=== PATIENT | female | born 1950 | race Caucasian/White ===

== ENCOUNTER 2020-04-06 19:52 | Emergency (ER) | payer MEDICARE, SELFPAY ==
--- NOTE | ~2020-04-06 | CT_ITS ---
EXAMINATION: CT abdomen pelvis w con DATE: 04/06/2020 22:07 INDICATION: Low abdominal pain. TECHNIQUE: Computed tomography (CT) of the abdomen and pelvis was performed with 100 mL Omnipaque 350 intravenous contrast. Automated exposure control and iterative reconstruction technique were employe d. The dose-length product was 383.54 mGy-cm. COMPARISON: CT abdomen and pelvis 10/10/2018 FINDINGS: The visualized portions of the lung bases demonstrate mild atelectasis. No pleural effusion . The heart size is normal. No pericardial effusion. Calcifications in the liver and spleen are consi stent with old granulomatous disease. The gallbladder, pancreas, and adrenal glands are normal. There is cortical thinning of the kidneys. There are cysts in the kidneys measuring up to 10 mm on the lef t. There are parenchymal calcifications in right kidney. There are 3 stones in left kidney measuring up to 5 mm. There are no dilated loops of bowel. The appendix is normal. There are no pathologically enlarged lymph nodes. There is no free intraperitoneal fluid. There are bilateral hip arthroplasties. There is severe lower lumbar spondylosis. IMPRESSION: 1. Nonobstructing left kidney stones. Reviewed, dictated and finalized at location A.
[2020-04-06 19:53] VITALS: BP 178/88; PULSE 99; RESP 14; TEMP 37.3; O2SAT 100
--- NOTE | 2020-04-06 20:24 | ED.ABDPAIN ---
HPI - Abdominal Pain General Chief Complaint: Abdominal Pain Stated Complaint: kidney stone Time Seen by Provider: 04/06/20 20:10 History of Present Illness HPI narrative: Patient is a 69-year-old female who presents ER with nonspecific abdominal pain. Patient reports over the last 3-1/2 to 4 weeks she has been having this thick-walled loss of appetite and generalized malaise. Reports over the last week she has developed and midline pains in her abdomen on the right side and the left side radiating to her back. She has history of kidney stones. She no longer has a gallbladder. She reports that she has not lost any weight and she was surviving mainly on fluids and soft foods like peanut butter. Reports 4-5 episodes of diarrhea today that were small caliber. Reports urinary frequency without dysuria or hematuria. Saw her PCP 2 days ago and did not mention any of these complaints. She was seen for sinusitis and did not start the antibiotic that was ordered. Related Data Home Medications Medication Instructions Recorded Confirmed alprazolam 0.25 mg tablet 0.25 mg PO DAILY 03/14/20 04/04/20 Allergies Allergy/AdvReac Type Severity Reaction Status Date / Time levetiracetam Allergy Severe ANAPHYLACTIC Verified 04/04/20 14:28 SHOCK mushroom Allergy Severe convulsions Verified 04/04/20 14:28 prochlorperazine Allergy Severe Anaphylactic Verified 04/04/20 14:28 Shock promethazine Allergy Severe Anaphylactic Verified 04/04/20 14:28 Shock bee venom protein (honey bee) AdvReac Severe anaphylaxis Verified 04/04/20 14:28 Review of Systems Review of Systems: All systems reviewed & are unremarkable except as noted in HPI and below Constitutional: Constitutional: Reports fatigue and Denies fever(s) ENT: Denies nasal congestion and Denies sore throat Cardiovascular: Cardiovascular: Denies chest pain, Denies rapid heart rate and Denies radiating jaw, neck or arm pain Respiratory: Respiratory: Denies cough and Denies dyspnea Gastrointestinal: Gastrointestinal: Reports abdominal pain, Reports nausea and Denies vomiting Genitourinary: Genitourinary: Denies hematuria, Reports nocturia and Denies dysuria [facility] Past Medical History Medical History (Updated 04/06/20 @ 22:54 by Jeffy Leal MD) Hypothyroidism (acquired) Kidney stone Mixed hyperlipidemia Recurrent sinusitis Seizure disorder Situational anxiety Surgical History Surgical History (Updated 04/06/20 @ 20:30 by Jeffy Leal MD) History of cholecystectomy Family History Family History (Updated 05/20/14 @ 07:13 by DOCTOR UNKNOWN) Other Cerebrovascular accident Diabetes mellitus Family history of arthritis Family history of coronary artery disease Family history of heart disease in male family member before age 55 Family history of malignant neoplasm Social History Social History Smoking status: Never smoker Alcohol intake: current Gender identity (if verbalized by the patient): Female Exam Narrative: Exam Narrative: GENERAL: Well-appearing, well-nourished, and in no acute distress. HEAD: Normocephalic, atraumatic. ENT: Mucous membranes moist. CHEST: Clear to auscultation. No respiratory distress. HEART: Regular rate and rhythm. Normal peripheral pulses. ABDOMEN: Soft, nontender, nondistended. EXTREMITIES: Normal range of motion. No edema. SKIN: Warm, dry, no rash. NEURO: Alert and oriented x3. Course Course Emergency Course: Unremarkable evaluation. Patient needs to follow-up with her primary care doctor. We will give some antinausea medication for home. Vital Signs Vital signs: Vital Signs Temperature 99.2 F 04/06/20 19:53 Pulse Rate 99 04/06/20 19:53 Respiratory Rate 14 04/06/20 19:53 Blood Pressure 178/88 H 04/06/20 19:53 Pulse Oximetry 100 04/06/20 19:53 Temperature 99.2 F 04/06/20 19:53 Pulse Rate 78 04/06/20 20:37 Respiratory Rate 20 04/06/20 20:37 Blood Press
[2020-04-06 20:37] VITALS: BP 168/91; PULSE 78; RESP 20; O2SAT 100
[2020-04-06] MEDS: MORPHINE SULFATE 2 MG/ML INJ IV PUSH (20:48)
[2020-04-06 20:51] LABS: Basophils Absolute Auto 0.1 K/mm3 (0.0-0.1); Eosinophils Percent Auto 0.6 % (0-4.4); Hematocrit 40.1 % (37.0-47.0); Hemoglobin 13.7 g/dL (12.0-15.0); Immature Granulocyte Absolute 0.02 K/mm3 (0.00-0.031); Immature Granulocyte Percent A 0.3 % (0-0.5); Lymphocytes Absolute Auto 1.51 K/mm3 (0.9-3.2); Lymphocytes Percent Auto 24.4 % (18.3-44.2); Mean Corpuscular HGB Conc 34.2 g/dl (32-36); Mean Corpuscular Hemoglobin 31.7 pg (26-34); Mean Corpuscular Volume 92.8 fl (80-100); Monocytes Absolute Auto 0.6 K/mm3 (0.1-0.6); Monocytes Percent Auto 9.7 % (2.6-8.5); Platelet Count Result 306 k/mm3 (150-375); Red Blood Count 4.32 M/mm3 (4.2-5.4); White Blood Count 6.2 K/mm3 (4.5-10.0)
[2020-04-06 21:03] LABS: Blood Urea Nitrogen 12 mg/dL (7-17); Carbon Dioxide 25 mmol/L (22-30); Chloride 104 mmol/L (98-107); Estimated CRCL calculation 55 ml/min; Estimated Glomerular Filt Rate > 60; Glucose 84 mg/dL (65-105); Potassium 3.9 mmol/L (3.4-5.0); Sodium 137 mmol/L (137-145)
[2020-04-06 22:12] LABS: Add Urine Microscopic? YES; Appearance Urine Clear (Clear); Bilirubin Urine Negative (Negative); Blood Urine Negative (Negative); Color Urine Yellow (Yellow); Glucose Urine UA Negative (Negative); Ketones Urine 1+ mg/dL (Negative); Leukocyte Esterase Ur Negative LEU/UL (Negative); Mucus Urine Rare /lpf; Nitrate Urine Negative (Negative); Protein Urine Negative (Negative); RBC Urine 0-2 /hpf (0-2); Specific Grav Ur 1.015 (1.001-1.035); Squamous Epithelial Cell Urine Rare /hpf (Few); Urobilinogen Urine Negative mg/dL (<2.0); WBC Urine 0-3 /hpf
[2020-04-06 22:40] VITALS: PULSE 76; RESP 20; O2SAT 100
[2020-04-06 23:10] VITALS: BP 191/90; PULSE 78; RESP 20; O2SAT 100
== END 2020-04-06 23:12 | disposition home or self-care (01) ==
PROVIDERS: Emergency Medicine; Emergency Provider Emergency Medicine; PCP Internal Medicine
DX: R10.30 Lower abdominal pain, unspecified (principal); R53.81 Other malaise; E03.9 Hypothyroidism, unspecified; Z87.442 Personal history of urinary calculi; E78.2 Mixed hyperlipidemia; N20.0 Calculus of kidney
CPT/HCPCS: 36415; 74177; 80048; 81001; 85025; 96374; 99284; J2270; Q9967

== ENCOUNTER 2021-06-30 10:41 | Outpatient (CLI) | payer MEDICARE, SELFPAY ==
--- NOTE | ~2021-06-30 | XR_ITS ---
XR abdomen/kub 1V DATE: 06/30/2021 11:00 INDICATION: Bilateral nephrolithiasis TECHNIQUE: AP projection, 2 views COMPARISON: 04/06/2020 CT abdomen pelvis with IV contrast material FINDINGS: At least 2 calcifications are noted overlying each kidney, consistent with bilateral nephro lithiasis. No calcification is noted overlying the ureters. There is a moderately prominent amount of fecal material in the colon. No bowel obstruction. The psoa s shadows are intact. No visceromegaly is evident. Status post bilateral total hip arthroplasty. IMPRESSION: Bilateral nephrolithiasis, stable since 04/06/2020 Reviewed, dictated and finalized at Location A. Reviewed, dictated and finalized at location A.
== END 2021-06-30 10:42 | disposition home or self-care (01) ==
LOC: ANHIMG 10:45
PROVIDERS: PCP Nurse Practitioner Family; Visit Provider Nurse Practitioner Adult Health
DX: N20.0 Calculus of kidney (principal)
CPT/HCPCS: 74018

== ENCOUNTER 2021-07-03 12:00 | Outpatient (CLI) | payer MEDICARE, SELFPAY ==
--- NOTE | ~2021-07-03 | CT_ITS ---
EXAMINATION: CT abdomen pelvis wo con EXAM DATE: 07/03/2021 12:53 INDICATION: Acute right-sided abdominal pain, flank pain. TECHNIQUE: Spiral CT of the abdomen and pelvis was performed without contrast. Axial, coronal and sag ittal images were reviewed. The dose-length product (DLP) for this examination was 432.58 mGy-cm. T he exposure was tailored according to patient size (auto mA exposure control), and iterative reconstr uction (ASIR) was used as additional dose reduction technique. Comparison is made to prior examinatio n from 04/06/2020. FINDINGS: There is left inferior calyceal 1 cm stone and 2 smaller right inferior calyceal stones. T here is right renal cortical scarring with calcification. There is no hydronephrosis to suggest obstr uctive nephropathy. Please note the distal aspects of both ureters are not evaluated due to dense art ifact from patient's bilateral hip replacement hardware. Bladder and uterus is still present also po nicci visualized. The liver, spleen, adrenal glands and pancreas are unremarkable. Gallbladder is contracted. No calci fied cholelithiasis. There is no retroperitoneal or pelvic lymphadenopathy. There is mild scattere d arteriosclerotic disease. The appendix is not positively visualized. There is no pericecal inflammatory change to suggest appe ndicitis. The stomach and small bowel are unremarkable. There is expected amount of colonic stool. No free intraperitoneal gas. The heart is normal in size. There are no pericardial or pleural e ffusions. The lung bases are unremarkable. There are no osteoblastic or osteolytic lesions identifi ed. IMPRESSION: Bilateral nephrolithiasis. No hydroureteronephrosis to suggest ureteral stone, but distal aspects of ureters, bladder poorly well visualized. No definite acute findings. Reviewed, dictated and finalized at location A. IMPRESSION: Bilateral nephrolithiasis. No hydroureteronephrosis to suggest uret eral stone, but distal aspects of ureters, bladder poorly well visualized. No d efinite acute findings.
== END 2021-07-03 12:01 | disposition home or self-care (01) ==
LOC: ANHIMG 12:12
PROVIDERS: PCP Nurse Practitioner Family; Visit Provider Nurse Practitioner Adult Health
DX: R10.9 Unspecified abdominal pain (principal); N20.0 Calculus of kidney
CPT/HCPCS: 74176

== ENCOUNTER 2022-07-18 12:58 | Outpatient (CLI) | payer MEDICARE, SELFPAY ==
--- NOTE | ~2022-07-18 | XR_ITS ---
XR abdomen/kub 1V 07/18/2022 13:24 Indication: Renal stones Procedure: KUB Comparison: 10/17/2018 Findings: There are bilateral renal stones. There are multiple calcified granulomas of the spleen. Cristobal wel gas pattern is nonobstructive with moderate colonic fecal loading. Lung bases are unremarkable. T here are bilateral hip arthroplasties. Impression: 1: Bilateral nephrolithiasis. Reviewed, dictated and finalized at location B. Impression: 1: Bilateral nephrolithiasis.
== END 2022-07-18 12:59 | disposition home or self-care (01) ==
PROVIDERS: Visit Provider Nurse Practitioner Adult Health
DX: N20.0 Calculus of kidney (principal)
CPT/HCPCS: 74018

== ENCOUNTER 2022-07-25 13:23 | Outpatient (CLI) | payer MEDICARE, SELFPAY ==
[2022-07-25 14:24] LABS: INR 1.1; Partial Thromboplastin Time 26.8 SECONDS (22.3-36.8); Prothrombin Time 13.3 Seconds (11.1-14.7)
== END 2022-07-25 13:24 | disposition home or self-care (01) ==
LOC: ANHSURGERY 13:28
PROVIDERS: Visit Provider Urology
DX: N20.0 Calculus of kidney (principal); Z01.818 Encounter for other preprocedural examination
CPT/HCPCS: 36415; 85610; 85730

== ENCOUNTER 2022-07-27 01:14 | Day surgery (SDC) | payer MEDICARE, SELFPAY ==
--- NOTE | 2022-07-24 15:16 | PC.NURSE ---
Report to the Outpatient Waiting Room, entrance under the green pavilion located off [facility], at time _6:30AM on date __07/27/22 . Planned Procedure Time: __8:30AM . Time changes happen often and if your time is changed the preop area will call you the afternoon before. - You and your visitor will be asked to self-screen and do not enter if you have any COVID symptoms. - We encourage only one visitor and NO visitors under age 16 are allowed at this time. Your visitor will receive communication by the phone number that is given day of service. - The patient visitor is requested to social distance or may leave the building when not with patient due to restrictions. - A mask is required within the hospital. Patients may have clear liquids (water, carbonated beverages, clear teas, apple juice) until 3 hours prior to surgery with a maximum of 20 ounces. - No food from midnight until time of surgery Take the following medications with a SIP of water the morning of surgery: __LEVOTHYROXINE, OXCARBAZEPINE, ZOFRAN & RIZATRIPTAN NEEDED Medications to discontinue per physician ___HOLD ALL VITAMINS/SUPPLEMENTS 3 DAYS PRE-OP Date to take last dose____07/24/22 Please no make-up, nail mongolian, hairspray, perfume, deodorant, or body powder the day of surgery. No jewelry (including any body piercings) or valuables the day of surgery, leave them at home. Please take a shower or bath the night before, or the morning of, surgery with an antibacterial soap. Wear comfortable, loose fitting clothing. Children are encouraged to wear pajamas. - Jewelry must be removed prior to entering the operating room. Rings and piercings that are not removed may be cut off. - The hospital will not accept responsibility for valuables. - Please leave all valuables, including medications, at home the day of surgery. If you are going home after surgery, a licensed compactor driver must drive you home. - NO public transportation without another adult. - We recommend that an adult stay with you for 24 hours following discharge. - We also recommend that you do not drive, make important decision, drink alcoholic beverages, or take any drugs that were not prescribed by your health care provider for at least 24 hours after your discharge time. Follow any additional instructions given to you from your surgeon. If you or anyone in your household have experienced Covid symptoms in the past week, please notify your surgeon or the nurse liaison at the phone number below for possible testing. Telephone instructions given to ___PATIENT and asked if any additional questions and then verbalized understanding. Patient advised to call surgeon office or pre surgery nurse liaison [phone] if any additional questions.
[2022-07-27] VITALS (9 sets, daily range): BP systolic 177–210; BP diastolic 81–98; PULSE 69–93; RESP 14–18; TEMP 36.2–36.7; O2SAT 98–100
--- NOTE | ~2022-07-27 | XR_ITS ---
EXAMINATION: XR abdomen/kub 1V DATE: 07/27/2022 06:56 INDICATION: Kidney stone. TECHNIQUE: A supine view of the abdomen on 2 radiographs was obtained. COMPARISON: CT abdomen and pelvis 07/03/2021, abdomen radiographs 07/18/2022 FINDINGS: There are no dilated loops of bowel. There is a large volume of stool in the colon. There a re bilateral hip arthroplasties. There is a 4 mm stone in right kidney lower pole. There are 2 calcif ications in right kidney upper pole measuring up to 7 mm that may be parenchymal. There is a 7 mm sto ne in left kidney. A 4 mm calcification left kidney may be parenchymal. IMPRESSION: 1. Bilateral kidney stones. Reviewed, dictated and finalized at location A. IMPRESSION: 1. Bilateral kidney stones.
[2022-07-27] MEDS: LACTATED RINGERS 1,000 ML 30 ML IV CONT (07:15)
--- NOTE | 2022-07-27 07:58 | WPDANESEPPF ---
Anes - Initial Pre Proc Eval Procedure: Operation Date: 07/27/22 08:30 Proposed Procedures p Left Renal Extracorporeal Shock Wave Lithotripsy - Segun Aguilera MD Date/Time: 07/27/22 07:58 Surgeon: Segun Aguilera MD Pre Op Diagnosis: left renal stone Patient Data Age: 71 Gender: F Height: 1.7 m Weight: 60.1 kg Allergies Allergy/AdvReac Type Severity Reaction Status Date / Time bee venom protein (honey bee) Allergy Severe anaphylaxis Verified 07/27/22 07:17 levetiracetam Allergy Severe ANAPHYLACTIC Verified 07/27/22 07:17 SHOCK/ORAL SWELLING mushroom Allergy Severe ORAL Verified 07/27/22 07:17 SWELLING prochlorperazine Allergy Severe Anaphylactic Verified 07/27/22 07:17 Shock/ORAL SWELLING promethazine Allergy Severe Anaphylactic Verified 07/27/22 07:17 Shock/ORAL SWELLING Home Medications Medication Instructions Recorded Confirmed Type ergocalciferol (vitamin D2) 1,250 50,000 unit PO 2XW #1 cap 08/04/19 07/24/22 Rx mcg (50,000 unit) capsule ondansetron HCl 4 mg tablet 4 mg PO Q8H PRN nausea and 04/06/20 07/24/22 Rx (Zofran) vomiting #10 tabs pantoprazole 40 mg tablet,delayed 40 mg PO QAM #90 tabs 08/02/20 07/24/22 Rx release levothyroxine 75 mcg capsule 75 mcg PO DAILY #30 caps 10/20/20 07/24/22 Rx oxcarbazepine 600 mg tablet 600 mg PO BID #60 tabs 01/12/21 07/24/22 Rx famotidine 20 mg tablet 20 mg PO BID 07/24/22 07/24/22 History lactobacillus combination no.8 3 3 cell PO DAILY 07/24/22 07/24/22 History billion cell capsule xtuppfzwsqtc-Zq-rtdi-minerals 1 tablet PO DAILY 07/24/22 07/24/22 History rizatriptan 10 mg tablet 10 mg PO BID PRN Migraine Headache 07/24/22 07/24/22 History sucralfate 1 gram tablet 1 g PO QID 07/24/22 07/24/22 History Patient hx anesthesia problems: none Family hx anesthesia problems: none Results Review: All pre-operative results and documents have been reviewed as part of the pre-operative evaluation. [facility] Past Medical History Medical History Hypothyroidism (acquired) Kidney stone Mixed hyperlipidemia Recurrent sinusitis Seizure disorder Situational anxiety Situational mixed anxiety and depressive disorder Urolithiasis Surgical History Surgical History History of cholecystectomy Family History Family History Other Cerebrovascular accident Diabetes mellitus Family history of arthritis Family history of coronary artery disease Family history of heart disease in male family member before age 55 Family history of malignant neoplasm Social History Social History Smoking status: Never smoker Alcohol intake: current Substance use: never Living arrangements: alone Gender identity (if verbalized by the patient): Female Spiritual care concerns: No Anes - Eval Final PreProcedure Day of Procedure 07/27/22 07:58 Patient weight: normal Heart: regular rate and rhythm Lungs: clear to auscultation Airway: Mallampati scale class II Neurological: alert and oriented Last oral intake: >/= 8 hours ASA classification: III Emergent: no Anesthetic plan: proceed Anesthesia type and monitoring: general LMA and standard monitoring Results Review: All pre-operative results and documents have been reviewed as part of the pre-operative evaluation. Informed Consent: The patient's anesthetic plan and its attendant risks and benefits were discussed with the patient/family/POA. Questions were solicited and answers provided to the satisfaction of the patient/family/POA.
--- NOTE | 2022-07-27 08:24 | WPDHPUPDATE1 ---
History and Physical Update Update Date/Time: 07/27/22 08:24 History and Physical has been reviewed, including an updated exam of the patient. There are NO changes in the patient's condition. Risks, benefits, and alternatives have been discussed and questions answered. Patient agrees to proceed with procedure.
--- NOTE | 2022-07-27 08:45 | W.PM.PROC2 ---
Procedure Note - Detailed Date of Procedure 07/27/22 Pre-op Diagnosis Left renal stones Post-op Diagnosis Same Procedure Performed Left ESWL Surgeon Segun Aguilera MD Anesthesia General Description of Procedure The patient was brought to the operative suite where he was placed in the supine position on the Dornier lithotripsy table. The focal point of the lithotripter was placed at a two, nearly contiguous calculi in the left lower pole. A total of 2500 shocks were delivered at a power setting of 4 to these stones. There appeared to be good fragmentation of the stones. The patient tolerated the procedure well and was taken to the recovery room in good condition. Drains No Packing No Pathology None sent Complications No immediate complications
[2022-07-27] MEDS: LABETALOL HCL INJ 100 MG/20 ML VIAL IV PUSH (09:35)
--- NOTE | 2022-07-27 10:34 | SUR.PHASEII ---
1034 - voided. family member here.
== END 2022-07-27 11:05 | disposition home or self-care (01) ==
PROVIDERS: Visit Provider Urology
PROC: (CPT 50590; principal; 2022-07-27 08:30)
DX: N20.0 Calculus of kidney (principal); E78.2 Mixed hyperlipidemia; G40.909 Epilepsy, unspecified, not intractable, without status epilepticus; E03.9 Hypothyroidism, unspecified; F41.8 Other specified anxiety disorders
CPT/HCPCS: 50590; 36415; 74018; 85610; 85730; J0690; J1100; J2250; J2405; J2704; J3010; J7120

== ENCOUNTER 2023-05-23 10:32 | Emergency (ER) | payer MEDICARE, SELFPAY ==
[2023-05-23] VITALS (10 sets, daily range): BP systolic 133–147; BP diastolic 54–90; PULSE 65–86; RESP 10–19; TEMP 36.3–36.8; O2SAT 98–100
--- NOTE | ~2023-05-23 | CT_ITS ---
EXAMINATION: CT abdomen pelvis w con DATE: 05/23/2023 14:03 INDICATION: Right flank pain. Nausea and vomiting. TECHNIQUE: Computed tomography (CT) of the abdomen and pelvis was performed with 100 mL Omnipaque 350 intravenous contrast. Automated exposure control and iterative reconstruction technique were employe d. The dose-length product was 393.00 mGy-cm. COMPARISON: CT abdomen and pelvis 07/03/2021 FINDINGS: The visualized portions of the lung bases demonstrate mild atelectasis. No pleural effusion . The heart size is normal. No pericardial effusion. Calcifications in the liver and spleen are consi stent with old granulomatous disease. There is a 7 mm cyst in the liver. The gallbladder, pancreas, a nd adrenal glands are normal. There is cortical thinning of the kidneys. There are cysts in the kidne ys measuring up to 13 mm on the left. There is a parenchymal calcification in right kidney. The dista l ureters are obscured by artifact from the bilateral hip arthroplasties. There is a 2 mm stone in th e bladder. There are no dilated loops of bowel. The appendix is not visualized. There are no patholog ically enlarged lymph nodes. There is no free intraperitoneal fluid. Aortic atherosclerosis is noted. There is severe lower lumbar spondylosis. IMPRESSION: 1. 2 mm stone in the bladder. Reviewed, dictated and finalized at location E.
[2023-05-23 11:29] LABS: Basophils Absolute Auto 0.1 K/mm3 (0.0-0.1); Basophils Percent Auto 1.6 % (0.2-1.2); Eosinophils Absolute Auto 0.3 K/mm3 (0-0.3); Eosinophils Percent Auto 4.5 % (0-4.4); Hematocrit 42.8 % (37.0-47.0); Hemoglobin 12.9 g/dL (12.0-15.0); Immature Granulocyte Absolute 0.02 K/mm3 (0.00-0.031); Immature Granulocyte Percent A 0.3 % (0-0.5); Lymphocytes Absolute Auto 2.66 K/mm3 (0.9-3.2); Lymphocytes Percent Auto 39.6 % (18.3-44.2); Mean Corpuscular HGB Conc 30.1 g/dl (32-36); Mean Corpuscular Hemoglobin 28.9 pg (26-34); Mean Corpuscular Volume 95.7 fl (80-100); Mean Platelet Volume 9.2 fl (7.4-10.4); Monocytes Absolute Auto 0.5 K/mm3 (0.1-0.6); Monocytes Percent Auto 7.6 % (2.6-8.5); Neutrophils Absolute Auto 3.1 K/mm3 (1.3-6.7); Neutrophils Percent Auto 46.4 % (45.5-73.1); Platelet Count Result 303 k/mm3 (150-375); Red Blood Count 4.47 M/mm3 (4.2-5.4); White Blood Count 6.7 K/mm3 (4.5-10.0)
[2023-05-23 11:45] LABS: Alanine Aminotransferase 32 U/L (6-35); Albumin Level 4.6 g/dL (3.5-5.1); Alkaline Phosphatase 101 U/L (38-126); Anion Gap 13 mmol/L (8-16); Aspartate Amino Transferase 40 U/L (14-36); Bilirubin,Total 0.4 mg/dL (0.2-1.3); Blood Urea Nitrogen 27 mg/dL (7-17); Calcium 10.1 mg/dL (8.4-10.2); Carbon Dioxide 18 mmol/L (22-30); Chloride 108 mmol/L (98-107); Estimated CRCL calculation 43 ml/min; Estimated Glomerular Filt Rate 54; Glucose 100 mg/dL (65-110); Potassium 4.8 mmol/L (3.4-5.0); Sodium 139 mmol/L (137-145)
[2023-05-23 13:17] LABS: Appearance Urine Clear (Clear); Bacteria Urine None Seen /hpf; Bilirubin Urine Negative (Negative); Blood Urine Negative (Negative); Color Urine Dark Yellow (Yellow); Glucose Urine UA Negative (Negative); Ketones Urine Negative (Negative); Leukocyte Esterase Ur 2+ LEU/UL (Negative); Need Manual Microscopic Reviewed; Nitrate Urine Negative (Negative); Non Pathogenic Casts 0-2; Protein Urine Negative (Negative); RBC Urine 0-2 /hpf (0-2); Specific Grav Ur 1.015 (1.001-1.035); Squamous Epithelial Cell Urine None seen /hpf (Few); Urobilinogen Urine 0.2 mg/dL (<2.0); WBC Urine 0-5 /hpf; pH Urine 7.5 (5.0-9.0)
[2023-05-23 13:18] LABS: Add Urine Microscopic? YES
--- NOTE | 2023-05-23 13:27 | ED.GENADULT ---
HPI - General Adult General Chief complaint: Abdominal Pain Stated complaint: flank pain Time Seen by Provider: 05/23/23 12:46 Source: patient Mode of arrival: ambulatory Limitations: no limitations History of Present Illness HPI narrative: This is a 72-year-old female who presents to the ED with chief complaint of right flank pain and nausea/vomiting that began last night. She states pain is constant today. She reports being on multiple rounds of antibiotics for potential UTI over the past month. She has been seen recently by your and is finishing up her prescription for Macrobid and ciprofloxacin right now. She states that she is having subjective fever and chills as well. Patient reports that she has had multiple renal/ureteral stones in the past and they have been monitoring the renal stones. Denies chest pain, shortness of breath, cough, problems with bowel movements. Related Data Home Medications Medication Instructions Recorded Confirmed atorvastatin 40 mg tablet 40 mg PO DAILY 05/01/23 sumatriptan succinate 25 mg tablet 25 mg PO BID PRN 05/01/23 topiramate 50 mg capsule,extended 50 mg PO BID 05/01/23 release 24 hr acetaminophen 500 mg capsule 650 mg PO Q6H PRN 05/02/23 lwrstxy-wqybcosuvwnkc-vtfvvbjr 250 1 tablet PO Q4-6H PRN 05/02/23 mg-250 mg-65 mg tablet (Excedrin Migraine) cephalexin 500 mg capsule 500 mg PO Q12H 05/02/23 cholecalciferol (vitamin D3) 125 125 mcg PO DAILY 05/02/23 mcg (5,000 unit) capsule gabapentin 300 mg capsule 300 mg PO BID PRN 05/02/23 oxcarbazepine 600 mg tablet 600 mg PO BID 05/02/23 Allergies Allergy/AdvReac Type Severity Reaction Status Date / Time bee venom protein (honey bee) Allergy Severe anaphylaxis Verified 05/23/23 12:44 levetiracetam Allergy Severe ANAPHYLACTIC Verified 05/23/23 12:44 SHOCK/ORAL SWELLING mushroom Allergy Severe ORAL Verified 05/23/23 12:44 SWELLING prochlorperazine Allergy Severe Anaphylactic Verified 05/23/23 12:44 Shock/ORAL SWELLING promethazine Allergy Severe Anaphylactic Verified 05/23/23 12:44 Shock/ORAL SWELLING Review of Systems Review of Systems: All systems as dictated in HPI PMFSH Past Medical History Medical History Chronic pain syndrome Deficiency of other specified B group vitamins Endometriosis Full dentures Gastro-esophageal reflux disease without esophagitis Hypothyroidism (acquired) Kidney stone Loss of hair Mixed hyperlipidemia Recurrent sinusitis Seizure disorder petite mal over 20 years ago Sepsis Situational mixed anxiety and depressive disorder Urolithiasis Vitamin D deficiency, unspecified Surgical History Surgical History History of cholecystectomy History of hysterectomy History of kidney surgery to remove kidney stones History of lithotripsy multiple History of total hip arthroplasty right x1 left x2 Family History Family History Grandparent Acute myocardial infarction Diabetes mellitus possibly grandfather Heart disease Hypertension Father Acute myocardial infarction 6 bypass Heart disease Hypertension Sibling Asthma Cerebrovascular accident Family history of malignant neoplasm brother Other Carcinoma of colon maternal aunt Diabetes mellitus cousin Family history of malignant neoplasm aunt, cousin Mother Family history of arthritis Social History Social History Smoking status: Never smoker Second hand tobacco smoke exposure: No Alcohol intake: current Alcohol use details: socially Substance use: never Lack of Transportation: No Lack of Food: Never True Current Housing: I Have Housing Concerned About Future Housing: N
[2023-05-23] MEDS: MORPHINE SULFATE (*CRX) 4 MG/ML INJ IV PUSH (13:30)
[2023-05-23] MEDS: SODIUM CHLORIDE 0.9% IV 1,000 ML 999 ML IV CONT (13:30)
[2023-05-23] MEDS: ONDANSETRON INJ 4 MG/2 ML VIAL IV PUSH (13:30)
== END 2023-05-23 14:58 | disposition home or self-care (01) ==
PROVIDERS: Student in an Organized Health Care Education/Training Program; Emergency Provider Physician Assistant
DX: N21.0 Calculus in bladder (principal); E78.2 Mixed hyperlipidemia; E55.9 Vitamin D deficiency, unspecified; E53.8 Deficiency of other specified B group vitamins; E03.9 Hypothyroidism, unspecified; N80.9 Endometriosis, unspecified; K21.9 Gastro-esophageal reflux disease without esophagitis; G89.4 Chronic pain syndrome; Z96.643 Presence of artificial hip joint, bilateral; Z87.442 Personal history of urinary calculi; Z90.49 Acquired absence of other specified parts of digestive tract; Z90.710 Acquired absence of both cervix and uterus; Z79.82 Long term (current) use of aspirin
CPT/HCPCS: 36415; 74177; 80053; 81001; 85025; 96361; 96374; 96375; 99284; J2270; J2405; J7030; Q9967

== ENCOUNTER 2024-04-02 12:41 | Outpatient (CLI) | payer MEDICARE, SELFPAY ==
--- NOTE | ~2024-04-02 | MR_ITS ---
EXAMINATION: MR abdomen wo/w con DATE: 04/02/2024 14:17 INDICATION: Kidney mass. TECHNIQUE: Magnetic resonance imaging (MRI) of the abdomen was performed without and with 12 mL Multi Chin intravenous contrast. COMPARISON: CT abdomen and pelvis 05/23/2023, MRCP 02/11/13 FINDINGS: There is mild intrahepatic biliary duct dilatation. The common duct is dilated to 11 mm, stable from 02/11/13. Calcifications in the spleen are consistent with old granulomatous disease. The gallbladder, pancreas, and adrenal glands are normal. There are cysts and hemorrhagic cysts in the kidneys measur ing up to 17 mm on the left. There are no dilated loops of bowel. There are no pathologically enlarge d lymph nodes. There is no free intraperitoneal fluid. IMPRESSION: 1. Benign cysts in the kidneys. Reviewed, dictated and finalized at location E.
== END 2024-04-02 12:42 | disposition home or self-care (01) ==
PROVIDERS: Visit Provider Physician Assistant
DX: N28.1 Cyst of kidney, acquired (principal)
CPT/HCPCS: 74183; A9577